=== PATIENT | female | born 1995 | race Caucasian/White ===

== ENCOUNTER 2016-07-07 07:38 | Inpatient (IN) | payer BC ==
[~2016-07-07] VITALS: Ht 157.5 cm; Wt 59.0 kg
[2016-07-07] MEDS ORDERED: PANT40TA PO (08:00)
[2016-07-07] MEDS ORDERED: SPR28 PO (08:00)
[2016-07-07] MEDS ORDERED: ADAL1KIT SQ (08:00)
[2016-07-07] MEDS ORDERED: ALUMCHW2 (08:00)
[2016-07-07] MEDS ORDERED: CLR10 PO (08:00)
[2016-07-07] MEDS ORDERED: ALUM1SUS PO (08:00)
[2016-07-07] MEDS ORDERED: KETOROLAC TROMETHAMINE 30 MG/ML VIAL IV STA (08:04)
[2016-07-07] MEDS ORDERED: SODIUM CHLORIDE 0.9% 1000ML 1,000 ML IV STA (08:04)
[2016-07-07] MEDS ORDERED: ONDANSETRON INJ 2 MG/ML 2 ML VIAL IV STA (08:04)
[2016-07-07 08:14] LABS: BASO % 1.1 %; BASO ABS # 0.05 K/uL (0-0.2); COMPLETE YES; EOS % 2.8 %; HEMATOCRIT 36.1 % (37-47); IG% 0.2 %; LYMPH % 26.5 %; LYMPH ABS # 1.23 K/uL (1.2-3.4); MEAN CELL VOLUME 86.8 fL (80-100); MEAN CORPUSCULAR HEMOGLOBIN 29.8 pg (25-34); MEAN CORPUSCULAR HGB CONC 34.3 g/dl (32-36); MEAN PLATELET VOLUME 9.8 fL (7.4-10.4); MONO % 14.7 %; NEUT % 54.7 %; PLATELET COUNT 405 K/uL (130-400); RED BLOOD COUNT 4.16 M/uL (4.2-5.4); WHITE BLOOD COUNT 4.64 K/uL (4.8-10.8)
--- NOTE | 2016-07-07 08:29 | DIAGNOSTIC IMAGING REPORT ---
CHEST ONE VIEW PORTABLE CLINICAL HISTORY: Pain, radiating to the abdomen. COMPARISON STUDY: No previous studies for comparison. FINDINGS: The cardiac and mediastinal contours are normal. There is no evidence of focal pulmonary consolidation. There is no evidence of failure. No pleural effusions are visualized.[ No free intraperitoneal air is visualized. IMPRESSION: No active disease in the chest. Electronically signed by: Rosalio Cristobal M.D. 07/07/2016 8:27 AM Dictated Date/Time: 07/07/2016 8:27 AM
[2016-07-07 08:35] LABS: BUN/CREATININE RATIO 12.7 (10-20); CALCIUM 9.5 mg/dl (8.5-10.1); CREATININE 0.75 mg/dl (0.60-1.20); POTASSIUM 3.8 mmol/L (3.5-5.1)
[2016-07-07 09:44] LABS: URINE APPEARANCE CLEAR (CLEAR); URINE BILIRUBIN NEG (NEG); URINE COLOR YELLOW; URINE NITRITE NEG (NEG); URINE SPECIFIC GRAVITY 1.006 (1.000-1.030); UROBILINOGEN NEG (NEG); ZZUR CULT IF INDIC CLEAN CATCH YES
[2016-07-07 09:47] LABS: MANUAL MICROSCOPIC REQUIRED? NO; REVIEW REQ? YES
[2016-07-07] MEDS ORDERED: FENTANYL CITRATE INJ 50 MCG/1 ML 2 ML VIAL IV STA (09:55)
[2016-07-07] MEDS ORDERED: LIDOCAINE HCL 2% VISC SOLN 20 ML UDC PO STA (09:55)
[2016-07-07] MEDS ORDERED: ALUMINUM/MAGNESIUM SUSP 30 ML UDC PO STA (09:55)
[2016-07-07] MEDS ORDERED: OPTIRAY 320 IV PRN (11:00)
--- NOTE | 2016-07-07 11:05 | DIAGNOSTIC IMAGING REPORT ---
BILIARY ULTRASOUND CLINICAL HISTORY: Upper abdominal pain COMPARISON STUDY: No previous studies for comparison. FINDINGS: The pancreas appears sonographically normal. No focal hepatic masses are visualized. There are multiple gallstones present. In addition there is a small, polyp or adherent stone. The common bile duct is mildly dilated measuring 8 mm. There is no right-sided hydronephrosis. IMPRESSION: 1. Cholelithiasis. No gallbladder wall thickening, and no pericholecystic fluid 2. Mildly dilated 8 mm common bile duct. Electronically signed by: Rosalio Cristobal M.D. 07/07/2016 11:03 AM Dictated Date/Time: 07/07/2016 11:02 AM
--- NOTE | 2016-07-07 11:16 | DIAGNOSTIC IMAGING REPORT ---
CT ABD/PELVIS IV AND ORAL CONT CLINICAL HISTORY: Intermittent epigastric pain. Worse the past 2/9. COMPARISON STUDY: None. TECHNIQUE: Following the IV administration of 94 mL of Optiray-320, CT scan of the abdomen and pelvis was performed from the lung bases to the proximal femurs. Images are reviewed in the axial, sagittal, and coronal planes. IV contrast was administered without complication. CT DOSE: 405.54 mGycm FINDINGS: Lower chest: The heart is normal in size and configuration, without pericardial effusion. The lung bases and pleural spaces are clear. Liver: Slightly heterogeneous enhancement particularly inferiorly. Minimal periportal edema. No focal masses. Gallbladder: Cholelithiasis. Spleen: Normal in size and attenuation. Pancreas: Unremarkable. Adrenal glands: Unremarkable. Kidneys: There is symmetric renal cortical enhancement. The kidneys are normal in size without hydronephrosis. Bowel: There are no transition zones indicate bowel obstruction. There is no acute diverticulitis. There are no findings to indicate acute appendicitis. Peritoneum: There is no intraperitoneal free air or abdominal ascites. Vasculature: The abdominal aorta is normal in course and caliber. Adenopathy: None. Pelvic viscera: The bladder, and pelvic viscera are unremarkable. Skeletal structures: There are subtle sclerosis and erosive changes involving the iliac side of the SI joints.. IMPRESSION: 1. Cholelithiasis 2. No evidence of bowel obstruction. No evidence of free air 3. No evidence of acute diverticulitis. No evidence of acute appendicitis 4. Subtle sclerosis and erosive changes involving the iliac side of the SI joints Electronically signed by: Rosalio Cristobal M.D. 07/07/2016 11:14 AM Dictated Date/Time: 07/07/2016 11:10 AM
--- NOTE | 2016-07-07 14:56 | EMERGENCY ROOM VISIT NOTE ---
History Report prepared by Milly: Alexandr Butler Under the Supervision of: Dr. Lowell Muller D.O. First contact with patient: 07:58 Chief Complaint: CHEST PAIN Stated Complaint: CHEST PAINS, BURPING Nursing Triage Summary: pt here chest/epigastric pain intermittently x one month. pt states worse past 2 nights. pt states feels better after releasing gas. pt denies any sob, nausea. pt started humira this week. has been taking prilosec x one month History of Present Illness The patient is a 20 year old female who presents to the Emergency Room with complaints of worsening chest and epigastric pain that started 2 days ago. She describes the pain as sharp. The patient states that she has been having intermittent chest pain for the past 1 and a half months, but the pain has become constant for the past 2 days, and she is not able to sleep due to the pain. The patient says that the pain is lessened after burping. She notes that she has been having intermittent abdominal pain that started around 3 months ago. The patient had an endoscopy and colonoscopy done a couple months ago due to having the abdominal pain, and there was concern that she might be having the pain due to being on long-term NSAIDS. She says that the abdominal pain feels like she is having gas and the abdominal pain is there when she has the chest pain. She says that she gets a bit short of breath when the pain gets bad , but she says that the shortness of breath may just be a result of her getting upset. The patient took Miralax a few times a couple weeks ago due to being constipated, but she has not been constipated this week. She denies nausea, fever, cough, or vomiting. The patient started taking Humira 2 days ago, as she has ankylosing spondylitis. Other than the ankylosing spondylitis, she has no other chronic medical problems. The patient started taking Gaviscon yesterday, and she has been taking Tums for the past week to try to resolve her symptoms. The patient was on Omeprazole and was switched to Protonix 3 weeks ago. She started taking Prilosec around a month ago. She is currently having her menstrual period. Source of History: patient Onset: 2 days ago Position: chest Quality: sharp Timing: worsening Modifying Factors (Relieving): other (burping) Associated Symptoms: + SOB, + abdominal pain, No cough, No nausea, No vomiting Review of Systems See HPI for pertinent positives & negatives. A total of 10 systems reviewed and were otherwise negative. Past Medical & Surgical Medical Problems: (1) Ankylosing spondylitis Family History No pertinent family history Social History Smoking Status: Never Smoker Marital Status: single Housing Status: lives with roommate Occupation Status: [employer] student Current/Historical Medications Scheduled Adalimumab (Humira), 40 MG SQ EVERY OTHER WEEK Ethinyl Estrad/Norgestimate (Sprintec 28), 1 TAB PO DAILY Loratadine (Claritin), 10 MG PO DAILY Pantoprazole (Protonix), 40 MG PO DAILY Miscellaneous Medications Aluminum Hydroxide-Mag Carb (Gaviscon Extra Strength 254-237.5 mg/5Ml), 10 ML PO Allergies Coded Allergies: Amoxicillin (Unverified Adverse Reaction, Unknown, general malaise, 07/07/16 ) Physical Exam Vital Signs Date Time Temp Pulse Resp B/P Pulse Ox O2 Delivery O2 Flow Rate FiO2 07/07/16 13:30 62 18 123/99 97 Room Air 07/07/16 13:05 51 07/07/16 11:30 56 18 113/69 99 Room Air 07/07/16 10:21 51 16 132/92 95 Room Air 07/07/16 09:36 52 18 122/83 94 Room Air 07/07/16 08:54 55 18 114/87 98 Room Air 07/07/16 08:22 51 16 143/87 99 Room Air 07/07/16 07:54 63 07/07/16 07:46 36.6 77 16 148/73 94 Room Air 07/07/16 07:44 100 Room Air Physical Exam CONSTITUTIONAL/VITAL SIGNS: Reviewed / noted above. GENERAL: Non-toxic in appearance. INTEGUMENTARY: Warm, dry, and [place]. HEAD: Normocephalic. EYES: without scleral icterus or trauma. ENT/OROPHARYNX: clear and moist. LYMPHADENOPATHY/NECK: Is supple without lymphadenopathy or meningismus. RESPIRATORY: Lungs clear and equal. CARDIOVASCULAR: Regular rate and rhythm. GI/ABDOMEN: Soft. Diffuse abdominal tenderness, worsening in epigastric area. No organomegaly or pulsatile mass. No rebound or guarding. Normal bowel sounds. EXTREMITIES: Warm and well perfused. BACK: No CVA tenderness. NEUROLOGICAL: Intact without focal deficits. PSYCHIATRIC: normal affect. MUSCULOSKELETAL: Normally developed with good muscle tone. Medical Decision & Procedures ER Provider Diagnostic Interpretation: Radiology results as stated below per my review and radiologist interpretation: CHEST ONE VIEW PORTABLE CLINICAL HISTORY: Pain, radiating to the abdomen. COMPARISON STUDY: No previous studies for comparison. FINDINGS: The cardiac and mediastinal contours are normal. There is no evidence of focal pulmonary consolidation. There is no evidence of failure. No pleural effusions are visualized.[ No free intraperitoneal air is visualized. IMPRESSION: No active disease in the chest. Electronically signed by: Rosalio Cristobal M.D. 07/07/2016 8:27 AM Dictated Date/Time: 07/07/2016 8:[address] ABD/PELVIS IV AND ORAL CONT CLINICAL HISTORY: Intermittent epigastric pain. Worse the past 2/9. COMPARISON STUDY: None. TECHNIQUE: Following the IV administration of 94 mL of Optiray-320, CT scan of the abdomen and pelvis was performed from the lung bases to the proximal femurs. Images are reviewed in the axial, sagittal, and coronal planes. IV contrast was administered without complication. CT DOSE: 405.54 mGycm FINDINGS: Lower chest: The heart is normal in size and configuration, without pericardial effusion. The lung bases and pleural spaces are clear. Liver: Slightly heterogeneous enhancement particularly inferiorly. Minimal periportal edema. No focal masses. Gallbladder: Cholelithiasis. Spleen: Normal in size and attenuation. Pancreas: Unremarkable. Adrenal glands: Unremarkable. Kidneys: There is symmetric renal cortical enhancement. The kidneys are normal in size without hydronephrosis. Bowel: There are no transition zones indicate bowel obstruction. There is no acute diverticulitis. There are no findings to indicate acute appendicitis. Peritoneum: There is no intraperitoneal free air or abdominal ascites. Vasculature: The abdominal aorta is normal in course and caliber. Adenopathy: None. Pelvic viscera: The bladder, and pelvic viscera are unremarkable. Skeletal structures: There are subtle sclerosis and erosive changes involving the iliac side of the SI joints.. IMPRESSION: 1. Cholelithiasis 2. No evidence of bowel obstruction. No evidence of free air 3. No evidence of acute diverticulitis. No evidence of acute appendicitis 4. Subtle sclerosis and erosive changes involving the iliac side of the SI joints Electronically signed by: Rosalio Cristobal M.D. 07/07/2016 11:14 AM Dictated Date/Time: 07/07/2016 11:10 AM BILIARY ULTRASOUND CLINICAL HISTORY: Upper abdominal pain COMPARISON STUDY: No previous studies for comparison. FINDINGS: The pancreas appears sonographically normal. No focal hepatic masses are visualized. There are multiple gallstones present. In addition there is a small, polyp or adherent stone. The common bile duct is mildly dilated measuring 8 mm. There is no right-sided hydronephrosis. IMPRESSION: 1. Cholelithiasis. No gallbladder wall thickening, and no pericholecystic fluid 2. Mildly dilated 8 mm common bile duct. Electronically signed by: Rosalio Cristobal M.D. 07/07/2016 11:03 AM Dictated Date/Time: 07/07/2016 11:02 AM Laboratory Results 07/07/16 07:50 Red Blood Count 4.16, Mean Corpuscular Volume 86.8, Mean Corpuscular Hemoglobin 29.8, Mean Corpuscular Hemoglobin Concent 34.3, Mean Platelet Volume 9.8, Neutrophils (%) (Auto) 54.7, Lymphocytes (%) (Auto) 26.5, Monocytes (%) (Auto) 14.7, Eosinophils (%) (Auto) 2.8, Basophils (%) (Auto) 1.1, Neutrophils # (Auto ) 2.54, Lymphocytes # (Auto) 1.23, Monocytes # (Auto) 0.68, Eosinophils # (Auto ) 0.13, Basophils # (Auto) 0.05 07/07/16 07:50 Test 07/07/16 07:50 07/07/16 08:12 07/07/16 09:30 White Blood Count 4.64 K/uL (4.8-10.8) Red Blood Count 4.16 M/uL (4.2-5.4) Hemoglobin 12.4 g/dL (12.0-16.0) Hematocrit 36.1 % (37-47) Mean Corpuscular Volume 86.8 fL (80-100) Mean Corpuscular Hemoglobin 29.8 pg (25-34) Mean Corpuscular Hemoglobin Concent 34.3 g/dl (32-36) Platelet Count 405 K/uL (130-400) Mean Platelet Volume 9.8 fL (7.4-10.4) Neutrophils (%) (Auto) 54.7 % Lymphocytes (%) (Auto) 26.5 % Monocytes (%) (Auto) 14.7 % Eosinophils (%) (Auto) 2.8 % Basophils (%) (Auto) 1.1 % Neutrophils # (Auto) 2.54 K/uL (1.4-6.5) Lymphocytes # (Auto) 1.23 K/uL (1.2-3.4) Monocytes # (Auto) 0.68 K/uL (0.11-0.59) Eosinophils # (Auto) 0.13 K/uL (0-0.5) Basophils # (Auto) 0.05 K/uL (0-0.2) RDW Standard Deviation 40.9 fL (36.4-46.3) RDW Coefficient of Variation 12.7 % (11.5-14.5) Immature Granulocyte % (Auto) 0.2 % Immature Granulocyte # (Auto) 0.01 K/uL (0.00-0.02) Anion Gap 5.0 mmol/L (3-11) Est Creatinine Clear Calc Drug Dose 104.3 ml/min Estimated GFR () 132.1 Estimated GFR (Non- 113.9 BUN/Creatinine Ratio 12.7 (10-20) Calcium Level 9.5 mg/dl (8.5-10.1) Total Bilirubin 0.9 mg/dl (0.2-1) Direct Bilirubin 0.5 mg/dl (0-0.2) Aspartate Amino Transf (AST/SGOT) 570 U/L (15-37) Alanine Aminotransferase (ALT/SGPT) 532 U/L (12-78) Alkaline Phosphatase 253 U/L (45-117) Total Protein 8.3 gm/dl (6.4-8.2) Albumin 3.5 gm/dl (3.4-5.0) Lipase 359 U/L (73-393) Monoscreen NEG (NEG) Bedside Troponin I 0.000 ng/ml (0-0.045) Urine Color YELLOW Urine Appearance CLEAR (CLEAR) Urine pH 8.0 (4.5-7.5) Urine Specific [place] 1.006 (1.000-1.030) Urine Protein NEG (NEG) Urine Glucose (UA) NEG (NEG) Urine Ketones NEG (NEG) Urine Occult Blood 3+ (NEG) Urine Nitrite NEG (NEG) Urine Bilirubin NEG (NEG) Urine Urobilinogen NEG (NEG) Urine Leukocyte Esterase NEG (NEG) Urine WBC (Auto) 1-5 /hpf (0-5) Urine RBC (Auto) 10-30 /hpf (0-4) Urine Hyaline Casts (Auto) 1-5 /lpf (0-5) Urine Epithelial Cells (Auto) 5-10 /lpf (0-5) Urine Bacteria (Auto) NEG (NEG) Urine Yeast (Auto) (NONE PRSENT) Urine Test NEG (NEG) Laboratory results as stated above per my review. Medications Administered Medications (Trade) Dose Ordered Sig/Cayden Route Start Time Stop Time Status Last Admin Dose Admin Sodium Chloride (Nss 1000ml) 1,000 ml @ 999 mls/hr Q1H1M STAT IV 07/07/16 08:04 07/07/16 09:04 DC 07/07/16 08:19 999 MLS/HR Ondansetron HCl (Zofran Inj) 4 mg NOW STAT IV 07/07/16 08:04 07/07/16 08:06 DC 07/07/16 08:19 4 MG Ketorolac Tromethamine (Toradol Inj) 30 mg NOW STAT IV 07/07/16 08:04 07/07/16 08:06 DC 07/07/16 08:19 30 MG Al Hydroxide/Mg Hydroxide (Maalox Susp) 30 ml NOW STAT PO 07/07/16 09:55 07/07/16 09:56 DC 07/07/16 10:15 30 ML Lidocaine HCl (Viscous Lidocaine 2% Soln) 10 ml NOW STAT PO 07/07/16 09:55 07/07/16 09:56 DC 07/07/16 10:14 10 ML Fentanyl Citrate (Fentanyl Inj) 50 mcg NOW STAT IV 07/07/16 09:55 07/07/16 09:56 DC 07/07/16 10:15 50 MCG ECG Indication: abdominal pain Rate (beats per minute): 62 Rhythm: normal sinus (with sinus arrhythmia) Findings: no ectopy, other (no acute injury) ED Course 0800: Previous medical records were reviewed. The patient was evaluated in room A9B. A complete history and physical examination was performed. 0804: Ordered Toradol Inj 30 mg IV, Zofran Inj 4 mg IV, NSS 1000 ml @ 999 mls/ hr IV. 0955: Ordered Fentanyl Inj 50 mcg IV, Viscous Lidocaine 2% Soln 10 ml PO, Maalox Susp 30 ml PO. 1230: I reevaluated and updated the patient. 1240: I discussed the patient with Dr. Modesto Johnson gastroenterology - he says that he will come down and see the patient. 1350: I discussed the patient with Bre MONCADA from Dr. Salvador's office - she thinks that the patient needs to be evaluated for further treatment , and have an MRCP and surgery consult. Bre Zamora says that she will put in the order for the surgery consult and MRCP. She told me to contact the hospitalist service to get the patient evaluated for further treatment. The patient verbally expressed understanding and agreement of the treatment plan. The patient will be evaluated for further treatment. 1356: I discussed the patient with Dr. Isabell Johnson logistics center manager - he will evaluate the patient for further treatment. Medical Decision Differential considered: pancreatitis, hepatitis, or acute cholecystitis, AAA, UTI, pyelonephritis, kidney stones, appendicitis, diverticulitis, shingles, bowel obstruction mesenteric ischemia, intussusception,hernia, ovarian torsion , ruptured ovarian cyst,ectopic , . This is a 20-year-old female who presents to the ED with a chief complaint of epigastric abdominal pain. The patient states that she has had the pain continuously for the past couple of days. She states that it feels a little better if she burps. She denies having any shortness of breath, fevers or cough. The patient states that she has had a little constipation over the past couple of weeks. She has used Miramax. The patient is currently using Gaviscon and is on Protonix. She states that she had endoscopy and colonoscopy about a month ago that was normal. Her physical exam revealed diffuse tenderness but mostly in the epigastric and upper quadrants. Chest x-ray did not show acute disease. CBC was unremarkable. PRP was normal. AST is 570, ALT is 532, alkaline phosphatase 253. Troponin was negative. Urine shows 3+ blood. She is on her period. I spoke with Dr. Covarrubias about the patient. He had Man Zamora see the patient in the ED. The patient will be admitted by Dr. Whyte. The patient will have an inpatient MRCP, surgery consult. Consults Time Called: 1235 Consulting Physician: Dr. Modesto Johnson gastroenterology Returned Call: 1240 I discussed the patient with Dr. Modesto Johnson gastroenterology - he says that he will come down and see the patient. Additional Consults: Time Called: -- Consulted Physician: Bre MONCADA from Dr. Salvador's office Returned Call: [phone] (in person) Additional Comments: I discussed the patient with Bre MONCADA from Dr. Salvador's office - she thinks that the patient needs to be evaluated for further treatment, and have an MRCP and surgery consult. Bre Zamora says that she will put in the order for the surgery consult and MRCP. She told me to contact the hospitalist service to get the patient evaluated for further treatment. The patient verbally expressed understanding and agreement of the treatment plan. The patient will be evaluated for further treatment. Time Called: 1350 Consulted Physician: Dr. Isabell Johnson logistics center manager Returned Call: [phone] Additional Comments: I discussed the patient with Dr. Isabell Johnson logistics center manager - he will evaluate the patient for further treatment. Impression Primary Impression: Cholelithiasis Additional Impressions: Possible choledocholithiasis Abdominal pain Scribe Attestation The scribe's documentation has been prepared under my direction and personally reviewed by me in its entirety. I confirm that the note above accurately reflects all work, treatment, procedures, and medical decision making performed by me. Departure Information Dispostion Being Evaluated By Hospitalist Referrals [facility] (PCP) Patient Instructions My [facility] Problem Qualifiers
[2016-07-07] MEDS ORDERED: FENTANYL CITRATE INJ 50 MCG/1 ML 2 ML VIAL IV PRN (15:00)
--- NOTE | 2016-07-07 15:37 | Gastrointestinal Consultation ---
Gastrointestinal Consultation Date of Consultation: July 07, 2016 Attending Physician: Dr. Wong Consulting Physician: Dr. Salvador Reason for Consultation: Abdominal pain, elevated LFTs History of Present Illness Patient is a 20 year old female patient of Dr. Meseret Jasmine of [facility] with a hx of recently dx'ed ankylosing spondylitis having started a Humira 2 days ago. She presented to the ED today for epigastric pain. GI is consulted for this as well as elevated transaminases. She has had lower chest and epigastric pressure type pain, typically in the afternoons and evenings w/o any specific food triggers. The pain is intermittent , with complete relief between the episodes. Initially the episodes lasted up to an hour, sometimes with relief with burping. She was on an NSAID for back pain related to the ankylosing spondylitis and she experienced rectal bleeding. She underwent EGD for the epigastric pain and colonoscopy for the rectal bleeding, both on 05/25/16, neither with any abnormalities. She had relief for about a week then the episodes of pain returned. In the past 2 days, the pain has been persistent and she has been unable to eat, though is still able to drink. On arrival, CT and US with gallstones mild bile duct dilation at 8mm. Her transaminases were significantly increased: AST 570, ALT 532, Alk Phos 253, bilirubin has remained normal. Lipase is mildly elevated at 359. She has not had chills, sweats or fevers and there is no leukocytosis. She is seen and examined while she is resting in bed in the ED. She is awake, alert, oriented and hemodynamically stable. Past Medical/Surgical History Medical Problems: (1) Abdominal pain Status: Acute (2) Cholelithiasis Status: Acute Past Medical History: Recent dx of [id number] positive Ankylosing Spondylitis. Past Surgical History: No prior surgeries Family History No pertinent family history Social History Smoking Status: Never Smoker Marital Status: single Housing Status: lives with roommate Occupation Status: [employer] student Allergies Coded Allergies: Amoxicillin (Unverified Adverse Reaction, Unknown, general malaise, 07/07/16 ) Current Medications Home Meds and Scripts Medications Dose Route/Sig Max Daily Dose Days Date Category Claritin (Loratadine) 10 Mg Tab 10 Mg PO DAILY 07/07/16 Reported Humira (Adalimumab) 40 Mg/0.8 Ml Kit 40 Mg SQ EVERY OTHER WEEK 07/07/16 Reported Sprintec 28 (Ethinyl Estradiol/Norgestimate) 1 Tab Tab 1 Tab PO DAILY 28 07/07/16 Reported Gaviscon Extra Strength 254-237.5 mg/5Ml (Aluminum Hydroxide-Mag Carb) 1 Eleni Eleni 10 Ml PO 07/07/16 Reported Protonix (Pantoprazole Sodium) 40 Mg Tab 40 Mg PO DAILY 07/07/16 Reported Review of Systems Constitutional: No chills, No fever, No sweats, No weakness, No weight loss Eyes: No eye pain, No redness ENT: No pain on swallowing, No sore throat, No trouble swallowing Respiratory: No cough, No dyspnea on exertion, No shortness of breath, No wheezing Cardiac: No chest pain, No edema, No palpitations Abdomen: + constipation (had mild constipation previously, relieved with miralax daily), + pain, + see HPI, No GI bleeding, No diarrhea, No nausea, No vomiting Neuro: No balance problems, No memory loss, No numbness/tingling, No vertigo, No weakness Psych: No anxiety, No depression symptoms, No insomnia Heme: No abnormal bleeding/bruising, No night sweats Endo: No excessive thirst, No excessive urination Skin: No itch, No jaundice, No new/changing skin lesions, No rash Physical Exam Date Time Temp Pulse Resp B/P Pulse Ox O2 Delivery O2 Flow Rate FiO2 07/07/16 13:30 62 18 123/99 97 Room Air 07/07/16 13:05 51 07/07/16 11:30 56 18 113/69 99 Room Air 07/07/16 10:21 51 16 132/92 95 Room Air 07/07/16 09:36 52 18 122/83 94 Room Air 07/07/16 08:54 55 18 114/87 98 Room Air 07/07/16 08:22 51 16 143/87 99 Room Air 07/07/16 07:54 63 07/07/16 07:46 36.6 77 16 148/73 94 Room Air 07/07/16 07:44 100 Room Air General Appearance: no apparent distress Eyes: normal inspection, EOMI Neck: supple, no adenopathy, thyroid normal Respiratory/Chest: chest non-tender, lungs clear, normal breath sounds, no accessory muscle use Cardiovascular: regular rate, rhythm, no JVD, no murmur Abdomen: normal bowel sounds, no organomegaly, + tenderness Extremities: normal inspection, no pedal edema, normal capillary refill Neurologic/Psych: alert, normal mood/affect, oriented x 3 Skin: normal color, no jaundice, warm/dry, no rash Laboratory Results Last 24 Hours Test 07/07/16 07:50 07/07/16 08:12 07/07/16 09:30 White Blood Count 4.64 K/uL Red Blood Count 4.16 M/uL Hemoglobin 12.4 g/dL Hematocrit 36.1 % Mean Corpuscular Volume 86.8 fL Mean Corpuscular Hemoglobin 29.8 pg Mean Corpuscular Hemoglobin Concent 34.3 g/dl Platelet Count 405 K/uL Mean Platelet Volume 9.8 fL Neutrophils (%) (Auto) 54.7 % Lymphocytes (%) (Auto) 26.5 % Monocytes (%) (Auto) 14.7 % Eosinophils (%) (Auto) 2.8 % Basophils (%) (Auto) 1.1 % Neutrophils # (Auto) 2.54 K/uL Lymphocytes # (Auto) 1.23 K/uL Monocytes # (Auto) 0.68 K/uL Eosinophils # (Auto) 0.13 K/uL Basophils # (Auto) 0.05 K/uL RDW Standard Deviation 40.9 fL RDW Coefficient of Variation 12.7 % Immature Granulocyte % (Auto) 0.2 % Immature Granulocyte # (Auto) 0.01 K/uL Sodium Level 139 mmol/L Potassium Level 3.8 mmol/L Chloride Level 104 mmol/L Carbon Dioxide Level 30 mmol/L Anion Gap 5.0 mmol/L Blood Urea Nitrogen 10 mg/dl Creatinine 0.75 mg/dl Est Creatinine Clear Calc Drug Dose 104.3 ml/min Estimated GFR () 132.1 Estimated GFR (Non- 113.9 BUN/Creatinine Ratio 12.7 Random Glucose 98 mg/dl Calcium Level 9.5 mg/dl Total Bilirubin 0.9 mg/dl Direct Bilirubin 0.5 mg/dl Aspartate Amino Transf (AST/SGOT) 570 U/L Alanine Aminotransferase (ALT/SGPT) 532 U/L Alkaline Phosphatase 253 U/L Total Protein 8.3 gm/dl Albumin 3.5 gm/dl Lipase 359 U/L Monoscreen NEG Bedside Troponin I 0.000 ng/ml Urine Color YELLOW Urine Appearance CLEAR Urine pH 8.0 Urine Specific [place] 1.006 Urine Protein NEG Urine Glucose (UA) NEG Urine Ketones NEG Urine Occult Blood 3+ Urine Nitrite NEG Urine Bilirubin NEG Urine Urobilinogen NEG Urine Leukocyte Esterase NEG Urine WBC (Auto) 1-5 /hpf Urine RBC (Auto) 10-30 /hpf Urine Hyaline Casts (Auto) 1-5 /lpf Urine Epithelial Cells (Auto) 5-10 /lpf Urine Bacteria (Auto) NEG Urine Yeast (Auto) Urine Test NEG Impression Patient is a 20 year old female symptoms and elevated transaminases consistent with symptomatic cholelithiasis, possible choledocholithiasis. There is no sign of cholangitis. Plan 1. MRCP, if positive for choledocholithiasis then will arrange ERCP. 2. Surgical referral to consider cholecystectomy. 3. Trend LFTs, lipase. 4. Keep NPO for now. 5. Will continue to follow. I have seen,examined, and agree with the assesment and plan as outlined above by Ms. Bre Zamora, -Biliary colic -Await MRCP -CBD stone may explain symptoms and labs, vs passed stone.
[2016-07-07] MEDS ORDERED: ONDANSETRON INJ 2 MG/ML 2 ML VIAL IV PRN (16:15)
[2016-07-07] MEDS ORDERED: MoRPHine SULFATE 4 MG/ML 1 ML CARP\\VIAL IV PRN ×2 (16:45→17:00)
[2016-07-07 17:15] VITALS: BP 122/82; PULSE 76; TEMP 36.6; O2SAT 98; Ht 157.5 cm; Wt 59.0 kg
--- NOTE | 2016-07-07 18:20 | DIAGNOSTIC IMAGING REPORT ---
MRCP CLINICAL HISTORY: Generalized abdominal pain. Nausea and vomiting. Eructation. COMPARISON STUDY: Abdominal CT and abdominal ultrasound dated 07/07/2016. TECHNIQUE: MRCP is performed using various T2-weighted sequences in the axial and coronal planes. IV contrast was not administered for this examination. 3-D reformats are created and assessed. FINDINGS: Layering gallstones are identified within the gallbladder. The gallbladder is otherwise normal in appearance. There is no MRI evidence of cholecystitis. There is no intra or extrahepatic biliary ductal dilatation. The common bile duct is normal in caliber and measures up to 5 mm. There are no filling defects identified to suggest choledocholithiasis. The pancreatic duct is normal as visualized. The hepatic parenchyma is normal as imaged. Mild periportal edema is suggested. The spleen, kidneys, and pancreas are grossly unremarkable. No upper abdominal ascites is identified. IMPRESSION: 1. Cholelithiasis without MRI evidence of acute cholecystitis. 2. There is no intra or extrahepatic biliary ductal dilatation. There is no evidence of choledocholithiasis. 3. Mild hepatic periportal edema is noted and likely related to hydration status. Electronically signed by: Rolan Tan M.D. 07/08/2016 10:42 AM Dictated Date/Time: 07/07/2016 5:19 PM
--- NOTE | 2016-07-07 18:29 | History and Physical ---
History & Physical Date & Time of Service: July 07, 2016 at 18:28 Chief Complaint: Abdominal Pain, Cholelithiasis Primary Care Physician: [facility] Past Medical/Surgical History Medical Problems: (1) Ankylosing spondylitis Status: Chronic Family History No pertinent family history Social History Smoking Status: Never Smoker Marital Status: single Occupational Status: [employer] student Allergies Coded Allergies: Amoxicillin (Unverified Adverse Reaction, Unknown, general malaise, 07/07/16 ) Home Medications Scheduled Adalimumab (Humira), 40 MG SQ EVERY OTHER WEEK Ethinyl Estrad/Norgestimate (Sprintec 28), 1 TAB PO DAILY Loratadine (Claritin), 10 MG PO DAILY Pantoprazole (Protonix), 40 MG PO DAILY Miscellaneous Medications Aluminum Hydroxide-Mag Carb (Gaviscon Extra Strength 254-237.5 mg/5Ml), 10 ML PO Physical Exam Vital Signs Date Time Temp Pulse Resp B/P Pulse Ox O2 Delivery O2 Flow Rate FiO2 07/07/16 16:28 51 18 106/76 100 07/07/16 16:00 106/76 07/07/16 15:38 66 16 99 07/07/16 15:30 125/90 07/07/16 15:08 63 21 97 07/07/16 15:00 125/83 07/07/16 14:38 68 20 94 07/07/16 14:30 127/84 07/07/16 14:08 63 16 99 07/07/16 14:00 136/87 07/07/16 13:38 59 19 97 07/07/16 13:30 62 18 123/99 97 Room Air 07/07/16 13:30 123/99 07/07/16 13:08 67 17 95 07/07/16 13:05 51 07/07/16 13:00 115/75 07/07/16 12:38 72 16 97 07/07/16 12:30 106/62 07/07/16 12:08 48 13 97 07/07/16 12:00 116/68 07/07/16 11:38 54 14 98 07/07/16 11:30 56 18 113/69 99 Room Air 07/07/16 11:30 113/69 07/07/16 10:30 106/63 07/07/16 10:21 51 16 132/92 95 Room Air 07/07/16 10:08 73 14 98 07/07/16 10:00 132/92 07/07/16 09:38 53 18 07/07/16 09:36 52 18 122/83 94 Room Air 07/07/16 09:32 122/83 07/07/16 09:08 72 17 94 07/07/16 09:00 123/93 07/07/16 08:54 55 18 114/87 98 Room Air 07/07/16 08:38 57 20 90 07/07/16 08:30 114/87 07/07/16 08:23 143/87 07/07/16 08:22 51 16 143/87 99 Room Air 07/07/16 08:08 61 13 87 07/07/16 08:00 143/99 07/07/16 07:54 63 07/07/16 07:46 36.6 77 16 148/73 94 Room Air 07/07/16 07:46 135/96 07/07/16 07:44 100 Room Air Diagnostics Laboratory Results Results Past 24 Hours Test 07/07/16 07:50 07/07/16 08:12 07/07/16 09:30 Range/Units White Blood Count 4.64 4.8-10.8 K/uL Red Blood Count 4.16 4.2-5.4 M/uL Hemoglobin 12.4 12.0-16.0 g/dL Hematocrit 36.1 37-47 % Mean Corpuscular Volume 86.8 80-100 fL Mean Corpuscular Hemoglobin 29.8 25-34 pg Mean Corpuscular Hemoglobin Concent 34.3 32-36 g/dl Platelet Count 405 130-400 K/uL Mean Platelet Volume 9.8 7.4-10.4 fL Neutrophils (%) (Auto) 54.7 % Lymphocytes (%) (Auto) 26.5 % Monocytes (%) (Auto) 14.7 % Eosinophils (%) (Auto) 2.8 % Basophils (%) (Auto) 1.1 % Neutrophils # (Auto) 2.54 1.4-6.5 K/uL Lymphocytes # (Auto) 1.23 1.2-3.4 K/uL Monocytes # (Auto) 0.68 0.11-0.59 K/uL Eosinophils # (Auto) 0.13 0-0.5 K/uL Basophils # (Auto) 0.05 0-0.2 K/uL RDW Standard Deviation 40.9 36.4-46.3 fL RDW Coefficient of Variation 12.7 11.5-14.5 % Immature Granulocyte % (Auto) 0.2 % Immature Granulocyte # (Auto) 0.01 0.00-0.02 K/uL Sodium Level 139 136-145 mmol/L Potassium Level 3.8 3.5-5.1 mmol/L Chloride Level 104 98-107 mmol/L Carbon Dioxide Level 30 21-32 mmol/L Anion Gap 5.0 3-11 mmol/L Blood Urea Nitrogen 10 7-18 mg/dl Creatinine 0.75 0.60-1.20 mg/dl Est Creatinine Clear Calc Drug Dose 104.3 ml/min Estimated GFR () 132.1 Estimated GFR (Non- 113.9 BUN/Creatinine Ratio 12.7 10-20 Random Glucose 98 70-99 mg/dl Calcium Level 9.5 8.5-10.1 mg/dl Total Bilirubin 0.9 0.2-1 mg/dl Direct Bilirubin 0.5 0-0.2 mg/dl Aspartate Amino Transf (AST/SGOT) 570 15-37 U/L Alanine Aminotransferase (ALT/SGPT) 532 12-78 U/L Alkaline Phosphatase 253 45-117 U/L Total Protein 8.3 6.4-8.2 gm/dl Albumin 3.5 3.4-5.0 gm/dl Lipase 359 73-393 U/L Monoscreen NEG NEG Bedside Troponin I 0.000 0-0.045 ng/ml Urine Color YELLOW Urine Appearance CLEAR CLEAR Urine pH 8.0 4.5-7.5 Urine Specific [place] 1.006 1.000-1.030 Urine Protein NEG NEG Urine Glucose (UA) NEG NEG Urine Ketones NEG NEG Urine Occult Blood 3+ NEG Urine Nitrite NEG NEG Urine Bilirubin NEG NEG Urine Urobilinogen NEG NEG Urine Leukocyte Esterase NEG NEG Urine WBC (Auto) 1-5 0-5 /hpf Urine RBC (Auto) 10-30 0-4 /hpf Urine Hyaline Casts (Auto) 1-5 0-5 /lpf Urine Epithelial Cells (Auto) 5-10 0-5 /lpf Urine Bacteria (Auto) NEG NEG Urine Yeast (Auto) NONE PRSENT Urine Test NEG NEG Microbiology Results 07/07/16 Urine Culture, Received Pending Impression Assessment and Plan admit #[id number] VTE Prophylaxis VTE Risk Assessment Done? Y/N: Yes Risk Level: Low
--- NOTE | 2016-07-07 18:57 | HISTORY & PHYSICAL EXAMINATION ---
DATE OF ADMISSION: 07/07/2016 ADMISSION HISTORY AND PHYSICAL CHIEF COMPLAINT: Upper abdominal pain. HISTORY OF PRESENT ILLNESS: The patient is a very pleasant 20-year-old female accompanied by her aunt who is a family physician known to me outside of work who notes that she started with chest and epigastric pain it has really been going off and on for about 4-6 weeks but really worse, especially over the last 2 days or so. She kind of wondered if she was having peptic ulcer disease problems because the alf NSAIDs related to her ankylosing spondylitis, but whenever she came here to the ER, her workup appeared much more biliary. She has not had fevers, chills, or sweats. She has not had jaundice. She has already been seen by GI by the time I have seen her and I discussed the case with general surgery. REVIEW OF SYSTEMS: Otherwise negative, except for as above. PAST MEDICAL HISTORY: Includes ankylosing spondylitis. MEDICATIONS: Include Humira 40 mg subQ every other week that was recently started, control pill daily, Claritin 10 mg daily, Protonix 40 mg daily. FAMILY HISTORY: No significant family history. SOCIAL HISTORY: She is not a smoker. 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 ALLERGIES: INCLUDE AMOXICILLIN, although it sounds more like it was nausea as an adverse reaction, not a true allergic reaction. PAST SURGICAL HISTORY: None of significance. PHYSICAL EXAMINATION: VITAL SIGNS: Temperature 36.6, pulse 77, respiratory rate 16, blood pressure 148/73, 94% on room air. GENERAL: She is awake, alert, oriented x3, pleasant, in no acute distress. HEENT: Normocephalic, atraumatic. Mucous membranes are moist. CARDIOVASCULAR: Regular without rubs, murmurs, or gallops. LUNGS: Clear to auscultation bilaterally. No rales, rhonchi, or wheezes with good effort. ABDOMEN: Soft, nondistended. She has right upper quadrant tenderness with voluntary guarding, no rigidity, no rebound. EXTREMITIES: Without cyanosis, clubbing or edema. No calf tenderness. SKIN: Shows no rashes, no pallor or icterus. NEUROLOGIC: Shows cranial nerves II-XII to be grossly intact. Gross motor and sensory are intact. MUSCULOSKELETAL: Yields no gross lesions. MENTAL STATUS: Shows good recent and remote recall. Normal mood and affect. Good judgment and insight. LABS AND DIAGNOSTICS: CBC shows a white count of 4.64, hemoglobin 12.4, platelets 405. Complete metabolic panel with a sodium 139, potassium 3.8, chloride 104, CO2 30, BUN 10, creatinine 0.75. Calcium 9.5, glucose 98, total bilirubin 0.9 with a direct of 0.5, AST 570, ALT 532, alkaline phosphatase 253. Troponin of 0. Total protein 8.3, albumin 3.5, lipase 359. Urinalysis - yellow, specific gravity 1.06, pH 8, 3+ blood with 5-10 epithelial cells, 10-30 red cells. test is negative. Price screen is negative. Chest x-ray showed no active disease. CT abdomen and pelvis showed heart normal size and configuration without pericardial effusion, lung bases and pleural spaces are clear, liver slightly heterogenous enhancement, particularly inferiorly, minimal periportal edema, no focal masses, cholelithiasis noted in the gallbladder, spleen is normal size and attenuation. Pancreas unremarkable. Adrenal is unremarkable. Kidneys symmetrical, renal cortical enhancement, kidneys are normal in size without hydronephrosis. Bowels no transition zones indicating obstruction, no acute diverticulitis. No findings to indicate acute appendicitis. Vasculature normal in course and caliber. Adenopathy none. Bladder, pelvic viscera unremarkable. Subtle sclerosis and erosive changes involving the iliac side of the SI joints. Gallbladder ultrasound showing pancreas appearing sonographically normal, no focal hepatic masses, multiple gallstones and a small polyp or adherent stone, common bile duct mildly dilated at 8 mm. No right-sided hydronephrosis. ASSESSMENT AND PLAN: 1. Epigastric and right upper abdominal pain. This appears to be on the basis of choledocholithiasis. Her LFTs are a bit more hepatocellular than obstructive, but her clinical picture certainly fits much more with an obstructive pathology. GI has seen her and agreed. They ordered an MRCP. Surgery consult pending. I discussed the case with general surgery, certainly when or if cholecystectomy is warranted. She is medically more than acceptable risk for the planned procedure. Discussed with the patient and her aunt in regards to the recent onset of Humira, certainly will watch her more closely for infection, but to the best of my knowledge, there is nothing about that that would be an absolute contraindication or even really making her high risk. Would continue to follow. 2. Transaminitis. Given that it is slightly atypical picture, certainly will follow up LFTs in the a.m. and follow up on her MRCP, but given the clinical picture with her symptoms and stones and common bile duct dilation, it appears fairly clinically consistent with biliary disease. 3. Ankylosing spondylitis. Follow closely. Certainly this would account for the sclerosis seen on her sacroiliac joints. Continue Humira as an outpatient. 4. Continue her control pills. 5. Deep venous thrombosis prophylaxis. Ambulation.
[2016-07-07] MEDS: SODIUM CHLOR 0.45% + 20MEQ KCL 1,000 ML IV SCH (19:51)
[2016-07-07 23:00] VITALS: BP 103/53; PULSE 45; TEMP 36.6; O2SAT 97
[2016-07-08 06:54] VITALS: BP 119/73; PULSE 58; TEMP 36.5; O2SAT 99
[2016-07-08 07:23] LABS: BASO % 1.3 %; BASO ABS # 0.05 K/uL (0-0.2); COMPLETE YES; EOS % 5.5 %; HEMATOCRIT 35.2 % (37-47); IG% 0.3 %; LYMPH % 33.9 %; LYMPH ABS # 1.29 K/uL (1.2-3.4); MEAN CELL VOLUME 87.6 fL (80-100); MEAN CORPUSCULAR HEMOGLOBIN 28.9 pg (25-34); MEAN PLATELET VOLUME 10.1 fL (7.4-10.4); MONO % 12.1 %; NEUT % 46.9 %; PLATELET COUNT 277 K/uL (130-400); RED BLOOD COUNT 4.02 M/uL (4.2-5.4); WHITE BLOOD COUNT 3.81 K/uL (4.8-10.8)
[2016-07-08 07:38] LABS: INR 1.1 (0.9-1.1); PROTHROMBIN TIME (PATIENT) 12.3 SECONDS (9.0-12.0)
[2016-07-08] MEDS: SODIUM CHLOR 0.45% + 20MEQ KCL 1,000 ML IV SCH ×2 (07:53→22:20)
[2016-07-08 07:59] LABS: BUN/CREATININE RATIO 10.9 (10-20); CREATININE 0.73 mg/dl (0.60-1.20); POTASSIUM 4.4 mmol/L (3.5-5.1)
[2016-07-08 08:02] LABS: ALB/GLOB RATIO 0.8 (0.9-2)
--- NOTE | 2016-07-08 08:06 | Medical Consult ---
Consultation Date of Consultation: July 08, 2016. Attending Physician: Terrance Whyte D.O. Reason for Consultation: Abdominal pain. 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 Patient reports that abdominal pain has been present on and off for the past 1 - 1.5 months. Patient was attributing pain to possible peptic ulcer disease due to long-term NSAID use for her diagnosis of ankylosing spondylitis. Patient reports that she had an upper GI and colonoscopy done in May of this year, which were normal- no biopsies taken. Over the past two days her abdominal pain became more consistent and more severe. She was eating a bland diet- mostly mashed potatoes to try and relieve the symptoms. She reports constipation over the past 1 week. Denies fever or chills. She denies nausea or vomiting. Denies bright red blood per rectum. Past Medical/Surgical History Medical Problems: (1) Abdominal pain Status: Acute (2) Cholelithiasis Status: Acute Surgical History [place] teeth Family History No pertinent family history Social History Smoking Status: Never Smoker Smokeless Tobacco Use: No Marital Status: single Housing Status: lives with roommate Occupation Status: [employer] student (about to graduate) Allergies Coded Allergies: Amoxicillin (Unverified Adverse Reaction, Unknown, general malaise, 07/07/16 ) Current Inpatient Medications Current Inpatient Medications Medications (Trade) Dose Ordered Sig/Cayden Route Start Time Stop Time Status Last Admin Dose Admin Ioversol (Optiray 320) 125 ml UD PRN IV 07/07/16 11:00 07/11/16 10:59 Fentanyl Citrate (Fentanyl Inj) 50 mcg Q15M PRN IV 07/07/16 15:00 07/21/16 14:59 07/07/16 15:05 50 MCG Ondansetron HCl (Zofran Inj) 4 mg Q6H PRN IV 07/07/16 16:15 08/06/16 16:14 Miscellaneous Information (Order Awaiting Action) 1 ea QS N/A 07/08/16 00:00 08/07/16 00:00 Morphine Sulfate 4 mg 4 mg Q4H PRN IV 07/07/16 17:00 07/21/16 16:59 Potassium Chloride/Sodium Chloride (1/2 Nss + 20meq KCl 1000ml) 1,000 ml @ 75 mls/hr [id number] IV 07/07/16 19:30 08/06/16 19:29 07/07/16 19:51 75 MLS/HR Review of Systems Constitutional: No chills, No fever, No sweats Abdomen: + pain (improved from yesterday), No diarrhea, No nausea, No vomiting Physical Exam Date Time Temp Pulse Resp B/P Pulse Ox O2 Delivery O2 Flow Rate FiO2 07/08/16 06:54 36.5 58 16 119/73 99 Room Air 07/07/16 23:30 Room Air 07/07/16 23:00 36.6 45 16 103/53 97 Room Air 07/07/16 17:15 36.6 76 14 122/82 98 Room Air 07/07/16 17:15 36.6 76 14 122/82 98 Room Air 07/07/16 16:28 51 18 106/76 100 07/07/16 16:00 106/76 07/07/16 15:38 66 16 99 07/07/16 15:30 125/90 07/07/16 15:08 63 21 97 07/07/16 15:00 125/83 07/07/16 14:38 68 20 94 07/07/16 14:30 127/84 07/07/16 14:08 63 16 99 07/07/16 14:00 136/87 07/07/16 13:38 59 19 97 07/07/16 13:30 62 18 123/99 97 Room Air 07/07/16 13:30 123/99 07/07/16 13:08 67 17 95 07/07/16 13:05 51 07/07/16 13:00 115/75 07/07/16 12:38 72 16 97 07/07/16 12:30 106/62 07/07/16 12:08 48 13 97 07/07/16 12:00 116/68 07/07/16 11:38 54 14 98 07/07/16 11:30 56 18 113/69 99 Room Air 07/07/16 11:30 113/69 07/07/16 10:30 106/63 07/07/16 10:21 51 16 132/92 95 Room Air 07/07/16 10:08 73 14 98 07/07/16 10:00 132/92 07/07/16 09:38 53 18 07/07/16 09:36 52 18 122/83 94 Room Air 07/07/16 09:32 122/83 07/07/16 09:08 72 17 94 07/07/16 09:00 123/93 07/07/16 08:54 55 18 114/87 98 Room Air 07/07/16 08:38 57 20 90 07/07/16 08:30 114/87 07/07/16 08:23 143/87 07/07/16 08:22 51 16 143/87 99 Room Air 07/07/16 08:08 61 13 87 07/07/16 08:00 143/99 07/07/16 07:54 63 General Appearance: WD/WN, no apparent distress Head: normocephalic, atraumatic Respiratory/Chest: chest non-tender, lungs clear, normal breath sounds, no respiratory distress, no accessory muscle use Cardiovascular: regular rate, rhythm, no edema Abdomen/GI: normal bowel sounds, soft, + pertinent finding (mild tenderness in RUQ, non-distended, no guarding) Laboratory Results Last 24 Hours Test 07/07/16 07:50 07/07/16 08:12 07/07/16 09:30 07/08/16 07:14 White Blood Count 4.64 K/uL 3.81 K/uL Red Blood Count 4.16 M/uL 4.02 M/uL Hemoglobin 12.4 g/dL 11.6 g/dL Hematocrit 36.1 % 35.2 % Mean Corpuscular Volume 86.8 fL 87.6 fL Mean Corpuscular Hemoglobin 29.8 pg 28.9 pg Mean Corpuscular Hemoglobin Concent 34.3 g/dl 33.0 g/dl Platelet Count 405 K/uL 277 K/uL Mean Platelet Volume 9.8 fL 10.1 fL Neutrophils (%) (Auto) 54.7 % 46.9 % Lymphocytes (%) (Auto) 26.5 % 33.9 % Monocytes (%) (Auto) 14.7 % 12.1 % Eosinophils (%) (Auto) 2.8 % 5.5 % Basophils (%) (Auto) 1.1 % 1.3 % Neutrophils # (Auto) 2.54 K/uL 1.79 K/uL Lymphocytes # (Auto) 1.23 K/uL 1.29 K/uL Monocytes # (Auto) 0.68 K/uL 0.46 K/uL Eosinophils # (Auto) 0.13 K/uL 0.21 K/uL Basophils # (Auto) 0.05 K/uL 0.05 K/uL RDW Standard Deviation 40.9 fL 42.2 fL RDW Coefficient of Variation 12.7 % 13.0 % Immature Granulocyte % (Auto) 0.2 % 0.3 % Immature Granulocyte # (Auto) 0.01 K/uL 0.01 K/uL Sodium Level 139 mmol/L Potassium Level 3.8 mmol/L Chloride Level 104 mmol/L Carbon Dioxide Level 30 mmol/L Anion Gap 5.0 mmol/L Blood Urea Nitrogen 10 mg/dl Creatinine 0.75 mg/dl Est Creatinine Clear Calc Drug Dose 104.3 ml/min Estimated GFR () 132.1 Estimated GFR (Non- 113.9 BUN/Creatinine Ratio 12.7 Random Glucose 98 mg/dl Calcium Level 9.5 mg/dl Total Bilirubin 0.9 mg/dl Direct Bilirubin 0.5 mg/dl Aspartate Amino Transf (AST/SGOT) 570 U/L Alanine Aminotransferase (ALT/SGPT) 532 U/L Alkaline Phosphatase 253 U/L Total Protein 8.3 gm/dl Albumin 3.5 gm/dl Lipase 359 U/L Monoscreen NEG Bedside Troponin I 0.000 ng/ml Urine Color YELLOW Urine Appearance CLEAR Urine pH 8.0 Urine Specific [place] 1.006 Urine Protein NEG Urine Glucose (UA) NEG Urine Ketones NEG Urine Occult Blood 3+ Urine Nitrite NEG Urine Bilirubin NEG Urine Urobilinogen NEG Urine Leukocyte Esterase NEG Urine WBC (Auto) 1-5 /hpf Urine RBC (Auto) 10-30 /hpf Urine Hyaline Casts (Auto) 1-5 /lpf Urine Epithelial Cells (Auto) 5-10 /lpf Urine Bacteria (Auto) NEG Urine Yeast (Auto) Urine Test NEG Prothrombin Time 12.3 SECONDS Prothromb Time International Ratio 1.1 MRCP CLINICAL HISTORY: Generalized abdominal pain. Nausea and vomiting. Eructation. COMPARISON STUDY: Abdominal CT and abdominal ultrasound dated 07/07/2016. TECHNIQUE: MRCP is performed using various T2-weighted sequences in the axial and coronal planes. IV contrast was not administered for this examination. 3-D reformats are created and assessed. FINDINGS: Layering gallstones are identified within the gallbladder. The gallbladder is otherwise normal in appearance. There is no MRI evidence of cholecystitis. There is no intra or extrahepatic biliary ductal dilatation. The common bile duct is normal in caliber and measures up to 5 mm. Filling defects identified to suggest choledocholithiasis. The pancreatic duct is normal as visualized. The hepatic parenchyma is normal as imaged. Mild periportal edema is suggested. The spleen, kidneys, and pancreas are grossly unremarkable. No upper abdominal ascites is identified. IMPRESSION: 1. Cholelithiasis without MRI evidence of acute cholecystitis. 2. There is no intra or extrahepatic biliary ductal dilatation. There is no evidence of cholelithiasis. 3. Mild hepatic periportal edema is noted and likely related to hydration status. BILIARY ULTRASOUND CLINICAL HISTORY: Upper abdominal pain COMPARISON STUDY: No previous studies for comparison. FINDINGS: The pancreas appears sonographically normal. No focal hepatic masses are visualized. There are multiple gallstones present. In addition there is a small, polyp or adherent stone. The common bile duct is mildly dilated measuring 8 mm. There is no right-sided hydronephrosis. IMPRESSION: 1. Cholelithiasis. No gallbladder wall thickening, and no pericholecystic fluid 2. Mildly dilated 8 [address] common bile duct. CT ABD/PELVIS IV AND ORAL CONT CLINICAL HISTORY: Intermittent epigastric pain. Worse the past 2/9. COMPARISON STUDY: None. TECHNIQUE: Following the IV administration of 94 mL of Optiray-320, CT scan of the abdomen and pelvis was performed from the lung bases to the proximal femurs. Images are reviewed in the axial, sagittal, and coronal planes. IV contrast was administered without complication. CT DOSE: 405.54 mGycm FINDINGS: Lower chest: The heart is normal in size and configuration, without pericardial effusion. The lung bases and pleural spaces are clear. Liver: Slightly heterogeneous enhancement particularly inferiorly. Minimal periportal edema. No focal masses. Gallbladder: Cholelithiasis. Spleen: Normal in size and attenuation. Pancreas: Unremarkable. Adrenal glands: Unremarkable. Kidneys: There is symmetric renal cortical enhancement. The kidneys are normal in size without hydronephrosis. Bowel: There are no transition zones indicate bowel obstruction. There is no acute diverticulitis. There are no findings to indicate acute appendicitis. Peritoneum: There is no intraperitoneal free air or abdominal ascites. Vasculature: The abdominal aorta is normal in course and caliber. Adenopathy: None. Pelvic viscera: The bladder, and pelvic viscera are unremarkable. Skeletal structures: There are subtle sclerosis and erosive changes involving the iliac side of the SI joints.. IMPRESSION: 1. Cholelithiasis 2. No evidence of bowel obstruction. No evidence of free air 3. No evidence of acute diverticulitis. No evidence of acute appendicitis 4. Subtle sclerosis and erosive changes involving the iliac side of the SI joints Assessment & Plan Abdominal Pain, Right Upper Quadrant - In to see patient, patient's mother at bedside- Patient reports that her pain is better controlled today. Reviewed patient's lab work and diagnostic studies. Reviewed patient's MRCP from this AM. Patient NPO, except for medications. Possible Lap Bev with ERCP- will wait for GI to see what their schedule is for today.
[2016-07-08] MEDS ORDERED: NORGESTIMATE PO SCH (09:00)
[2016-07-08] MEDS ORDERED: ETHINYL ESTRAD PO SCH (09:00)
--- NOTE | 2016-07-08 09:48 | Gastroenterology Progress Note ---
Progress Note Date of Service: July 08, 2016 Subjective Pt evaluation today including: conversation w/ patient, conversation w/ family , physical exam, chart review, lab review, review of studies, review of inpatient medication list Pt denies reports improved abd pain, not much nausea and no vomiting. Labs reviewed, LFTs are improving, Tbili normalized. Review of Systems Constitutional: No chills, No fever Respiratory: No cough, No shortness of breath Cardiac: No chest pain, No edema Abdomen: + nausea, No pain, No vomiting Skin: No jaundice Medications Current Inpatient Medications Medications (Trade) Dose Ordered Sig/Cayden Route Start Time Stop Time Status Last Admin Dose Admin Ioversol (Optiray 320) 125 ml UD PRN IV 07/07/16 11:00 07/11/16 10:59 Fentanyl Citrate (Fentanyl Inj) 50 mcg Q15M PRN IV 07/07/16 15:00 07/21/16 14:59 07/07/16 15:05 50 MCG Ondansetron HCl (Zofran Inj) 4 mg Q6H PRN IV 07/07/16 16:15 08/06/16 16:14 Miscellaneous Information (Order Awaiting Action) 1 ea QS N/A 07/08/16 00:00 08/07/16 00:00 Morphine Sulfate 4 mg 4 mg Q4H PRN IV 07/07/16 17:00 07/21/16 16:59 Potassium Chloride/Sodium Chloride (1/2 Nss + 20meq KCl 1000ml) 1,000 ml @ 75 mls/hr [id number] IV 07/07/16 19:30 08/06/16 19:29 07/08/16 07:53 75 MLS/HR Objective Vital Signs Date Time Temp Pulse Resp B/P Pulse Ox O2 Delivery O2 Flow Rate FiO2 07/08/16 08:30 Room Air 07/08/16 06:54 36.5 58 16 119/73 99 Room Air 07/07/16 23:30 Room Air 07/07/16 23:00 36.6 45 16 103/53 97 Room Air 07/07/16 17:15 36.6 76 14 122/82 98 Room Air 07/07/16 17:15 36.6 76 14 122/82 98 Room Air 07/07/16 16:28 51 18 106/76 100 07/07/16 16:00 106/76 5/3/17 15:38 66 16 99 07/07/16 15:30 125/90 07/07/16 15:08 63 21 97 07/07/16 15:00 125/83 07/07/16 14:38 68 20 94 07/07/16 14:30 127/84 07/07/16 14:08 63 16 99 07/07/16 14:00 136/87 07/07/16 13:38 59 19 97 07/07/16 13:30 62 18 123/99 97 Room Air 07/07/16 13:30 123/99 07/07/16 13:08 67 17 95 07/07/16 13:05 51 07/07/16 13:00 115/75 07/07/16 12:38 72 16 97 07/07/16 12:30 106/62 07/07/16 12:08 48 13 97 07/07/16 12:00 116/68 07/07/16 11:38 54 14 98 07/07/16 11:30 56 18 113/69 99 Room Air 07/07/16 11:30 113/69 07/07/16 10:30 106/63 07/07/16 10:21 51 16 132/92 95 Room Air 07/07/16 10:08 73 14 98 07/07/16 10:00 132/92 Physical Exam General Appearance: WD/WN, no apparent distress Eyes: normal inspection, PERRL, EOMI Neck: supple, no JVD, trachea midline Respiratory/Chest: normal breath sounds, no respiratory distress, no accessory muscle use Cardiovascular: regular rate, rhythm, no gallop, no murmur Abdomen: soft, + abnormal bowel sounds (hypoactive), + tenderness (mild discomfort over epigastric per pt on palpation ) Extremities: normal inspection, no pedal edema, no calf tenderness Neurologic/Psych: alert, normal mood/affect, oriented x 3 Skin: normal color, no jaundice, no rash Laboratory Results Last 24 Hours Test 07/08/16 07:14 White Blood Count 3.81 K/uL Red Blood Count 4.02 M/uL Hemoglobin 11.6 g/dL Hematocrit 35.2 % Mean Corpuscular Volume 87.6 fL Mean Corpuscular Hemoglobin 28.9 pg Mean Corpuscular Hemoglobin Concent 33.0 g/dl Platelet Count 277 K/uL Mean Platelet Volume 10.1 fL Neutrophils (%) (Auto) 46.9 % Lymphocytes (%) (Auto) 33.9 % Monocytes (%) (Auto) 12.1 % Eosinophils (%) (Auto) 5.5 % Basophils (%) (Auto) 1.3 % Neutrophils # (Auto) 1.79 K/uL Lymphocytes # (Auto) 1.29 K/uL Monocytes # (Auto) 0.46 K/uL Eosinophils # (Auto) 0.21 K/uL Basophils # (Auto) 0.05 K/uL RDW Standard Deviation 42.2 fL RDW Coefficient of Variation 13.0 % Immature Granulocyte % (Auto) 0.3 % Immature Granulocyte # (Auto) 0.01 K/uL Prothrombin Time 12.3 SECONDS Prothromb Time International Ratio 1.1 Sodium Level 142 mmol/L Potassium Level 4.4 mmol/L Chloride Level 106 mmol/L Carbon Dioxide Level 28 mmol/L Anion Gap 8.0 mmol/L Blood Urea Nitrogen 8 mg/dl Creatinine 0.73 mg/dl Est Creatinine Clear Calc Drug Dose 96.4 ml/min Estimated GFR () 136.5 Estimated GFR (Non- 117.7 BUN/Creatinine Ratio 10.9 Random Glucose 79 mg/dl Calcium Level 9.0 mg/dl Total Bilirubin 0.7 mg/dl Direct Bilirubin 0.2 mg/dl Aspartate Amino Transf (AST/SGOT) 229 U/L Alanine Aminotransferase (ALT/SGPT) 458 U/L Alkaline Phosphatase 214 U/L Total Protein 7.2 gm/dl Albumin 3.1 gm/dl Globulin 4.1 gm/dl Albumin/Globulin Ratio 0.8 Assessment and Plan Patient is a 20 year old female symptoms and elevated transaminases consistent with symptomatic cholelithiasis, possible choledocholithiasis. There is no sign of cholangitis. Abd u/s, CT, MRCP w evidence of cholelithiasis w/o cholecystitis, no choledocholithiasis. Though CBD measured 8mm on u/s, on MRCP it measured 5mm. Pt 's LFTs are trending down, Tbili normalized. She's currently having mild discomfort only on epigastric and slight nausea but overall much improved from her report. - Reviewed MRCP results w Dr. Salvador -> no signs of choledocholithiasis or filling defect. Thus will defer ERCP - Keep NPO; Will ask Surgery to re-eval for possible choledocholithiasis. - Monitor LFTs. I have seen, examined and agree with the plan as outlined by ANTWAN Alas as above. -exam reveals soft abd -LFTs improved -MRCP normal-to OR today for lulu and IOC, but overall improved.
--- NOTE | 2016-07-08 09:52 | Hospitalist Progress Note ---
Hospitalist Progress Note Date of Service July 08, 2016. Subjective Pt evaluation today including: conversation w/ patient, conversation w/ family , physical exam, chart review, lab review, review of studies, review of inpatient medication list Patient's seen and evaluated. No acute events overnight. Reporting abdominal pain is still present however largely improved states pain more radiated into chest. AST and PLT are trending down. GI and general surgery on board with plan for cholecystectomy. She reports first dose of Humira yesterday for ankylosing spondylitis. Verbalizes no other complaints. Positive flatus and had BM morning. Constitutional: No chills, No fatigue, No fever, No weakness ENT: No nasal symptoms, No sore throat, No trouble swallowing Respiratory: No cough, No dyspnea at rest, No dyspnea on exertion Cardiovascular: + chest pain Abdomen: + pain (RUQ - improving), No constipation, No diarrhea, No nausea, No vomiting Musculoskeletal: No calf pain, No swelling Female : No dysuria Neurologic: No balance problems, No numbness/tingling Heme: No abnormal bleeding/bruising Skin: No rash Medications Current Inpatient Medications Medications (Trade) Dose Ordered Sig/Cayden Route Start Time Stop Time Status Last Admin Dose Admin Ioversol (Optiray 320) 125 ml UD PRN IV 07/07/16 11:00 07/11/16 10:59 Fentanyl Citrate (Fentanyl Inj) 50 mcg Q15M PRN IV 07/07/16 15:00 07/21/16 14:59 07/07/16 15:05 50 MCG Ondansetron HCl (Zofran Inj) 4 mg Q6H PRN IV 07/07/16 16:15 08/06/16 16:14 Miscellaneous Information (Order Awaiting Action) 1 ea QS N/A 07/08/16 00:00 08/07/16 00:00 Morphine Sulfate 4 mg 4 mg Q4H PRN IV 07/07/16 17:00 07/21/16 16:59 Potassium Chloride/Sodium Chloride (1/2 Nss + 20meq KCl 1000ml) 1,000 ml @ 75 mls/hr [id number] IV 07/07/16 19:30 08/06/16 19:29 07/08/16 07:53 75 MLS/HR Objective Vital Signs Date Time Temp Pulse Resp B/P Pulse Ox O2 Delivery O2 Flow Rate FiO2 07/08/16 08:30 Room Air 07/08/16 06:54 36.5 58 16 119/73 99 Room Air 07/07/16 23:30 Room Air 07/07/16 23:00 36.6 45 16 103/53 97 Room Air 07/07/16 17:15 36.6 76 14 122/82 98 Room Air 07/07/16 17:15 36.6 76 14 122/82 98 Room Air 07/07/16 16:28 51 18 106/76 100 07/07/16 16:00 106/76 07/07/16 15:38 66 16 99 07/07/16 15:30 125/90 07/07/16 15:08 63 21 97 07/07/16 15:00 125/83 07/07/16 14:38 68 20 94 07/07/16 14:30 127/84 07/07/16 14:08 63 16 99 07/07/16 14:00 136/87 07/07/16 13:38 59 19 97 07/07/16 13:30 62 18 123/99 97 Room Air 07/07/16 13:30 123/99 07/07/16 13:08 67 17 95 07/07/16 13:05 51 07/07/16 13:00 115/75 07/07/16 12:38 72 16 97 07/07/16 12:30 106/62 07/07/16 12:08 48 13 97 07/07/16 12:00 116/68 07/07/16 11:38 54 14 98 07/07/16 11:30 56 18 113/69 99 Room Air 07/07/16 11:30 113/69 07/07/16 10:30 106/63 07/07/16 10:21 51 16 132/92 95 Room Air 07/07/16 10:08 73 14 98 07/07/16 10:00 132/92 Physical Exam General Appearance: WD/WN, no apparent distress Eyes: sclerae normal ENT: hearing grossly normal Neck: supple, no JVD, trachea midline Respiratory/Chest: lungs clear, normal breath sounds, no respiratory distress, no accessory muscle use Cardiovascular: regular rate, rhythm, no gallop, no murmur Abdomen: normal bowel sounds, soft, + tenderness (mild in RUQ and epigastric region; no guarding or rigidity suggesting acute abdomen) Extremities: no pedal edema, no calf tenderness Neurologic/Psychiatric: alert, oriented x 3 Skin: normal color, warm/dry Laboratory Results Last 24 Hours Test 07/08/16 07:14 White Blood Count 3.81 K/uL Red Blood Count 4.02 M/uL Hemoglobin 11.6 g/dL Hematocrit 35.2 % Mean Corpuscular Volume 87.6 fL Mean Corpuscular Hemoglobin 28.9 pg Mean Corpuscular Hemoglobin Concent 33.0 g/dl Platelet Count 277 K/uL Mean Platelet Volume 10.1 fL Neutrophils (%) (Auto) 46.9 % Lymphocytes (%) (Auto) 33.9 % Monocytes (%) (Auto) 12.1 % Eosinophils (%) (Auto) 5.5 % Basophils (%) (Auto) 1.3 % Neutrophils # (Auto) 1.79 K/uL Lymphocytes # (Auto) 1.29 K/uL Monocytes # (Auto) 0.46 K/uL Eosinophils # (Auto) 0.21 K/uL Basophils # (Auto) 0.05 K/uL RDW Standard Deviation 42.2 fL RDW Coefficient of Variation 13.0 % Immature Granulocyte % (Auto) 0.3 % Immature Granulocyte # (Auto) 0.01 K/uL Prothrombin Time 12.3 SECONDS Prothromb Time International Ratio 1.1 Sodium Level 142 mmol/L Potassium Level 4.4 mmol/L Chloride Level 106 mmol/L Carbon Dioxide Level 28 mmol/L Anion Gap 8.0 mmol/L Blood Urea Nitrogen 8 mg/dl Creatinine 0.73 mg/dl Est Creatinine Clear Calc Drug Dose 96.4 ml/min Estimated GFR () 136.5 Estimated GFR (Non- 117.7 BUN/Creatinine Ratio 10.9 Random Glucose 79 mg/dl Calcium Level 9.0 mg/dl Total Bilirubin 0.7 mg/dl Direct Bilirubin 0.2 mg/dl Aspartate Amino Transf (AST/SGOT) 229 U/L Alanine Aminotransferase (ALT/SGPT) 458 U/L Alkaline Phosphatase 214 U/L Total Protein 7.2 gm/dl Albumin 3.1 gm/dl Globulin 4.1 gm/dl Albumin/Globulin Ratio 0.8 Assessment and Plan Ms. Barrios is a 20 y/o female with PMHx of Ankylosing Spondylitis who presents with worsening CP and RUQ tenderness with evidence of CBD dilation and gallstones without evidence of cholecystitis. 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
[2016-07-08] MEDS ORDERED: BUPIVACAINE/EPINEPHRINE 0.5% MPF 1:200,000 30 ML VIAL ONE (14:52)
[2016-07-08] MEDS ORDERED: NURSING VERBAL MED ORDER STA (15:10)
[2016-07-08] MEDS ORDERED: FENTANYL CITRATE INJ 50 MCG/1 ML 2 ML VIAL ONE ×3 (15:12→16:18)
[2016-07-08] MEDS ORDERED: MIDAZOLAM HCL 1 MG/ML 2ML VIAL ONE (15:12)
[2016-07-08] MEDS ORDERED: HYDR-5688 PO (15:12)
[2016-07-08] MEDS ORDERED: CIPROFLOXACIN 400MG / 200ML D5W ONE (15:14)
--- NOTE | 2016-07-08 15:14 | History & Physical Bridge Note ---
H&P Re-Evaluation Bridge Note: I have examined the patient, reviewed the History & Physical and in the interval since the performance of the History & Physical I have noted the following changes of clinical significance: No changes noted
--- NOTE | 2016-07-08 15:14 | Discharge Instructions ---
Discharge Instructions Date of Service July 08, 2016. Admission Reason for Admission: Abdominal Pain, Cholelithiasis Discharge Discharge Diagnosis / Problem: Abdominal Pain, Cholelithiasis Discharge Goals Goal(s): Decrease discomfort, Improve function Activity Recommendations Activity Limitations: as noted below Lifting Limitations: no more than 10 pounds Exercise/Sports Limitations: until after follow-up appointment May Resume Sexual Activity: after follow-up appointment Shower/Bathe: tomorrow . Instructions / Follow-Up Instructions / Follow-Up Please follow-up with Dr. Alston in the office in 1-2 weeks. Please call the office at [phone] to make an appointment. Please call the office at [phone] with any questions or concerns. Current Hospital Diet Patient's current hospital diet: Discharge Diet Recommended Diet: Regular Diet Pending Studies Studies pending at discharge: no Medical Emergencies . Who to Call and When: Medical Emergencies: If at any time you feel your situation is an emergency, please call 911 immediately. . Non-Emergent Contact Non-Emergency issues call your: Primary Care Provider, Surgeon Call Non-Emergent contact if: temperature is above 101.5, your pain is not controlled, wound has increased drainage, wound has increased redness . "Provider Documentation" section prepared by Marjorie Kaufman. . VTE Core Measure Inpt VTE Proph given/why not?: SCD's [place] Drug Monitoring Program Search Results: patient reviewed within database, no issues identified
[2016-07-08] MEDS ORDERED: CONRAY 60% 50 ML VIAL ONE (15:16)
[2016-07-08] MEDS ORDERED: ONDANSETRON INJ 2 MG/ML 2 ML VIAL IV PRN (16:15)
[2016-07-08] MEDS ORDERED: KETOROLAC TROMETHAMINE 30 MG/ML VIAL IV. PRN (16:15)
[2016-07-08] MEDS ORDERED: HYDROmorphone INJ 1 MG/ML SYR IV PRN (16:15)
[2016-07-08] MEDS ORDERED: ATROPINE SULFATE 0.1 MG/ML 5ML SYR IV PRN (16:15)
[2016-07-08] MEDS ORDERED: PROMETHAZINE HCL INJ 12.5 MG in SODIUM CHLORIDE 0.9% 50ML 50 ML IV PRN (16:15)
[2016-07-08] MEDS ORDERED: NALOXONE HCL 0.4 MG/1 ML VIAL/CARP IV PRN (16:15)
[2016-07-08] MEDS ORDERED: EpHEDrine SULFATE INJ 50 MG/ML AMP IV PRN (16:15)
[2016-07-08] MEDS ORDERED: FLUMAZENIL 0.1 MG/1 ML 10 ML VIAL IV PRN (16:15)
[2016-07-08] MEDS ORDERED: HYDROmorphone INJ 2 MG/ML SYR/VIAL ONE (16:29)
[2016-07-08] MEDS ORDERED: MoRPHine SULFATE 4 MG/ML 1 ML CARP\\VIAL IV PRN (16:30)
[2016-07-08] MEDS ORDERED: NEOSTIGMINE METHYLSULFATE 5 MG/5 ML SYR ONE (16:32)
[2016-07-08] MEDS ORDERED: KETOROLAC TROMETHAMINE 30 MG/ML VIAL ONE (16:32)
[2016-07-08] MEDS ORDERED: RANITIDINE HCL 25 MG/ML INJ ONE (16:32)
[2016-07-08] MEDS ORDERED: DEXAMETHASONE SOD INJ 4 MG/ML VIAL ONE (16:32)
[2016-07-08] MEDS ORDERED: PROPOFOL IV EMULSION 10 MG/ML 20 ML VIAL IV ONE (16:32)
[2016-07-08] MEDS ORDERED: GLYCOPYRROLATE INJ 0.2 MG/ML VIAL ONE (16:32)
[2016-07-08] MEDS ORDERED: ROCURONIUM BROMID 50MG/5ML SYR ONE (16:32)
[2016-07-08] MEDS ORDERED: ONDANSETRON INJ 2 MG/ML 2 ML VIAL ONE (16:32)
[2016-07-08] MEDS ORDERED: LIDOCAINE HCL 2% 2 ML VIAL (20MG/ML) ONE (16:32)
--- NOTE | 2016-07-08 16:34 | DIAGNOSTIC IMAGING REPORT ---
INTRAOPERATIVE CHOLANGIOGRAM HISTORY: Post cholecystectomy. FLUOROSCOPY TIME: 28 seconds. FINDINGS: Fluoroscopy was provided for an intraoperative cholangiogram status post cholecystectomy. Contrast was injected through the cystic duct remnant. The common bile duct is normal in course and caliber. There are no filling defects seen within the common bile duct to suggest a retained stone. Contrast extends into the small bowel. There is no intrahepatic bile duct dilatation. IMPRESSION: Fluoroscopy provided for an intraoperative cholangiogram status post cholecystectomy. No filling defects within the common bile duct. No evidence for obstruction. Electronically signed by: Ye Spain M.D. 07/08/2016 4:32 PM Dictated Date/Time: 07/08/2016 4:32 PM
--- NOTE | 2016-07-08 16:44 | [facility] Operative Report ---
Operative Report Operative Date July 08, 2016. Pre-Operative Diagnosis Cholelithasis Post-Operative Diagnosis same Procedure(s) Performed lap lulu with intra-operative cholangiogram Surgeon Dr Alston Disaster Recovery Manager Surgeon(s) Marjorie Kaufman PA-C Estimated Blood Loss 10ml Findings essentially normal anatomy; negative cholangiogram. mild gallbladder wall edema Specimens a. Gallbladder Anesthesia get Complication(s) None Disposition Recovery Room / PACU I attest to the content of the Intraoperative Record and any orders documented therein. Any exceptions are noted below.
--- NOTE | 2016-07-08 17:12 | OPERATIVE REPORT ---
DATE OF OPERATION: 07/08/2016 PREOPERATIVE DIAGNOSES: Cholelithiasis and choledocholithiasis. POSTOPERATIVE DIAGNOSES: Cholelithiasis, no evidence of current choledocholithiasis as well as chronic cholecystitis. PROCEDURE: Laparoscopic cholecystectomy with intraoperative cholangiogram. SURGEON: Dr. Alexandr Alston. NEUROPSYCHIATRIC AIDE: Marjorie Kaufman PA-C ESTIMATED BLOOD LOSS: Approximately 10 mL. COMPLICATIONS: No immediate. ANESTHESIA: General. The patient tolerated the procedure well. OPERATIVE NOTE: After informed consent was obtained, the patient was taken to the operating suite and placed in the supine position. After successful intubation, the abdomen was sterilely prepped and draped in the usual fashion. A periumbilical incision was made with an 11-blade scalpel and carried down through the soft tissue using electrocautery. Anterior rectus fascia was opened using electrocautery and two #0 Vicryl stay sutures were placed. Peritoneum was elevated with hemostats and incised under direct vision using a Metzenbaum scissor. A finger sweep was performed. A 12-mm Ubaldo trocar was placed and the abdomen was insufflated at 18 mmHg. Laparoscope was inserted and the abdomen examined at 360 degrees. A subxiphoid 5-mm port and 2 right upper quadrant 5-mm ports were placed under direct vision. The patient was placed in reverse Trendelenburg position, slightly airplaned to the left. The gallbladder was grasped and elevated superiorly and laterally. A [place] dissector was used to take down some adhesions around the neck of the gallbladder. There was an anterior aberrant cystic artery that was skeletonized, clipped and divided. After that, we were able to then skeletonize the cystic duct. A clip was placed distally and than 50% of the circumference of the duct was transected. We then inserted a catheter introduction kit tip into the right upper quadrant. A cholangiocath was advanced into the lumen of the cystic duct and the balloon inflated. We performed an intraoperative cholangiogram with 50:50 omnipaque. The common bile duct appeared to be free of any filling defect, filled rapidly as did the right and left hepatic ducts and it filled the whole way down into the duodenum. We did not get good visualization of the cystic duct because the balloon had advanced down into the common duct; however, primarily we were looking for common bile duct stones and we did not see any evidence of that. We then deflated the balloon and removed it. I clipped the cystic duct twice proximally and transected it. There was a cystic artery posteriorly as well, we skeletonized, clipped and divided. We then removed the gallbladder from the gallbladder fossa. It was removed intact and placed into an EndoCatch bag. Several small bleeding points in the gallbladder fossa were controlled using electrocautery. Thorough irrigation was performed of the right upper quadrant. At the end of the procedure, there was adequate hemostasis and no evidence of any bile leak. We did take a quick look around the abdomen and on the left lobe of the liver and saw no other gross abnormalities. The gallbladder was placed into an EndoCatch bag and removed from the camera port site. The trocars were all removed and the abdomen desufflated. The fascia of the camera port was closed using 0 Vicryl in a [id number] fashion. All the wounds were irrigated and closed using 4-0 Monocryl. Marcaine was injected around them for postoperative analgesia and skin glue used as a dressing. The patient was awakened, extubated, and transferred to recovery in stable condition. I attest to the content of the Intraoperative Record and any orders documented therein. Any exceptio ns are noted below.
--- NOTE | 2016-07-08 17:22 | Anesthesiology Progress Note ---
Anesthesia Post Op Note Date & Time July 08, 2016 at 17:22 Vital Signs Pain Intensity: 0 Vital Signs Past 12 Hours Date Time Temp Pulse Resp B/P Pulse Ox O2 Delivery O2 Flow Rate FiO2 07/08/16 17:15 57 12 124/73 100 Mask 10 07/08/16 17:05 72 15 119/68 100 Mask 10 07/08/16 16:55 36.9 90 14 135/63 99 Mask 10 07/08/16 08:30 Room Air 07/08/16 06:54 36.5 58 16 119/73 99 Room Air Notes Mental Status: alert / awake / arousable, participated in evaluation Pt Amnestic to Procedure: Yes Nausea / Vomiting: adequately controlled Pain: adequately controlled Airway Patency, RR, SpO2: stable & adequate BP & HR: stable & adequate Hydration State: stable & adequate Anesthetic Complications: no major complications apparent
[2016-07-08 18:13] VITALS: O2SAT 100
[2016-07-08 18:20] VITALS: O2SAT 100
[2016-07-08 19:02] VITALS: BP 132/87; PULSE 63; TEMP 36.5; O2SAT 97
[2016-07-08 20:20] VITALS: BP 138/87; PULSE 56; TEMP 36.3; O2SAT 96
[2016-07-08 21:02] VITALS: BP 136/92; PULSE 52; TEMP 36.4; O2SAT 98
[2016-07-08] MEDS: HYDROCODONE/ACETAMOPHEN 5/325MG TAB PO PRN (22:21)
[2016-07-09] VITALS: BP 117/77; PULSE 53; TEMP 36.5; O2SAT 98
[2016-07-09 03:29] VITALS: BP 116/73; PULSE 47; TEMP 36.5; O2SAT 98
[2016-07-09 03:55] VITALS: PULSE 52
[2016-07-09] MEDS: HYDROCODONE/ACETAMOPHEN 5/325MG TAB PO PRN ×3 (04:04→14:25)
[2016-07-09 07:13] LABS: HEMATOCRIT 34.5 % (37-47); MEAN CELL VOLUME 86.7 fL (80-100); MEAN CORPUSCULAR HEMOGLOBIN 28.6 pg (25-34); PLATELET COUNT 354 K/uL (130-400); RED BLOOD COUNT 3.98 M/uL (4.2-5.4); WHITE BLOOD COUNT 9.02 K/uL (4.8-10.8)
[2016-07-09 07:18] VITALS: BP 120/75; PULSE 56; TEMP 36.6; O2SAT 98
[2016-07-09 07:44] LABS: ALT/SGPT 312 U/L (12-78); AST/SGOT 91 U/L (15-37); BLOOD UREA NITROGEN 6 mg/dl (7-18); BUN/CREATININE RATIO 10.3 (10-20); CALCIUM 8.8 mg/dl (8.5-10.1); CARBON DIOXIDE 27 mmol/L (21-32); CHLORIDE 104 mmol/L (98-107); CREATININE 0.56 mg/dl (0.60-1.20); GLUCOSE 95 mg/dl (70-99); POTASSIUM 4.1 mmol/L (3.5-5.1); SODIUM 139 mmol/L (136-145)
[2016-07-09 07:46] LABS: ALB/GLOB RATIO 0.8 (0.9-2); ALKALINE PHOSPHATASE 175 U/L (45-117)
--- NOTE | 2016-07-09 08:53 | Discharge Instructions ---
Discharge Instructions Date of Service July 09, 2016. Admission Reason for Admission: Abdominal Pain, Cholelithiasis Discharge Discharge Diagnosis / Problem: Cholelithiasis with Laparoscopic Cholecystectomy Discharge Goals Goal(s): Decrease discomfort, Improve function, Increase independence Activity Recommendations Activity Limitations: as noted below (Please see discharge instructions from general surgery) . Instructions / Follow-Up Instructions / Follow-Up Choledocholithiasis (Stone in Common Bile Duct): - Question of possible stone from gallbladder may have moved and passed resulting in your pain. Imaging and surgery was unable to visualize current stone in common bile duct or obstruction - Follow instructions as given by general surgery - Would recommend advancing diet as tolerated. Be careful with fatty foods as these may cause diarrhea. - The purpose of the gallbladder is to hold bile (this helps break down fats) and slowly releases bile into the intestine to digest fat. When you do not have a gallbladder the liver will dump the bile directly into the intestines that can cause diarrhea. Ankylosing Spondylitis: - Would recommend touching base with your chief of staff doctor prior to your appointment to see if they would recommend holding the dose. - Overall as long as you are feeling well there should not be any contraindications but please discuss with your [facility] Home Medications: - Continue your home medications as previously prescribed Current Hospital Diet Patient's current hospital diet: Clear Liquid Diet Discharge Diet Recommended Diet: Regular Diet Procedures Procedures Performed: Laparoscopic Cholecystectomy with Cholangiogram Pending Studies Studies pending at discharge: yes List of pending studies: Gallbladder pathology Medical Emergencies . Who to Call and When: Medical Emergencies: If at any time you feel your situation is an emergency, please call 911 immediately. . Non-Emergent Contact Non-Emergency issues call your: Primary Care Provider Call Non-Emergent contact if: you have a fever, your pain is concerning you, you have any medication questions . . "Provider Documentation" section prepared by Winnie Anaya. . VTE Core Measure Inpt VTE Proph given/why not?: SCD's
--- NOTE | 2016-07-09 08:57 | Surgery Progress Note ---
Surgery Progress Note Date of Service July 09, 2016. Subjective Post OP Day: 1 + feeling well, + flatus In to see patient with Dr. Alston- Patient doing ok- reports abdominal discomfort. Denies nausea or vomiting. Objective Vital Signs: Date Time Temp Pulse Resp B/P Pulse Ox O2 Delivery O2 Flow Rate FiO2 07/09/16 07:20 Room Air 07/09/16 07:18 36.6 56 16 120/75 98 Room Air 07/09/16 03:55 52 07/09/16 03:29 36.5 47 16 116/73 98 Room Air 07/09/16 00:20 Room Air 07/09/16 00:00 36.5 53 16 117/77 98 Room Air 07/08/16 21:02 36.4 52 16 136/92 98 Room Air 07/08/16 20:20 36.3 56 16 138/87 96 07/08/16 19:02 36.5 63 16 132/87 97 Nasal Cannula 2.0 07/08/16 18:20 100 Nasal Cannula 2.0 07/08/16 18:13 100 Nasal Cannula 2.0 07/08/16 17:35 60 13 133/74 100 Nasal Cannula 2 07/08/16 17:25 37.4 54 13 135/77 100 Nasal Cannula 2 07/08/16 17:15 57 12 124/73 100 Mask 10 07/08/16 17:05 72 15 119/68 100 Mask 10 07/08/16 16:55 36.9 90 14 135/63 99 Mask 10 General Appearance: WD/WN, + mild distress Head: normocephalic, atraumatic Respiratory/Chest: no respiratory distress Abdomen: non distended, soft Incision(s): clean, dry, intact, no drainage Laboratory Results: Results Past 24 Hours Test 07/09/16 06:35 Range/Units White Blood Count 9.02 4.8-10.8 K/uL Red Blood Count 3.98 4.2-5.4 M/uL Hemoglobin 11.4 12.0-16.0 g/dL Hematocrit 34.5 37-47 % Mean Corpuscular Volume 86.7 80-100 fL Mean Corpuscular Hemoglobin 28.6 25-34 pg Mean Corpuscular Hemoglobin Concent 33.0 32-36 g/dl RDW Standard Deviation 41.4 36.4-46.3 fL RDW Coefficient of Variation 12.9 11.5-14.5 % Platelet Count 354 130-400 K/uL Mean Platelet Volume 10.0 7.4-10.4 fL Sodium Level 139 136-145 mmol/L Potassium Level 4.1 3.5-5.1 mmol/L Chloride Level 104 98-107 mmol/L Carbon Dioxide Level 27 21-32 mmol/L Anion Gap 8.0 3-11 mmol/L Blood Urea Nitrogen 6 7-18 mg/dl Creatinine 0.56 0.60-1.20 mg/dl Est Creatinine Clear Calc Drug Dose 125.7 ml/min Estimated GFR () > 150.0 Estimated GFR (Non- 133.3 BUN/Creatinine Ratio 10.3 10-20 Random Glucose 95 70-99 mg/dl Calcium Level 8.8 8.5-10.1 mg/dl Total Bilirubin 0.7 0.2-1 mg/dl Aspartate Amino Transf (AST/SGOT) 91 15-37 U/L Alanine Aminotransferase (ALT/SGPT) 312 12-78 U/L Alkaline Phosphatase 175 45-117 U/L Total Protein 6.5 6.4-8.2 gm/dl Albumin 2.8 3.4-5.0 gm/dl Globulin 3.7 2.5-4.0 gm/dl Albumin/Globulin Ratio 0.8 0.9-2 Assessment & Plan POD #1 s/p Lap lulu with intraoperative cholangiogram- Dr. Alston in to see patient. Patient sitting up in bed and doing well- having minor abdominal pain, which is not unexpected on POD #1. Patient ok to be discharged today. Patient ok to go on trip to [place] on 07/19- reminded her to be careful with lifting and make sure to rest when able. Advance diet as tolerated. Patient to follow-up with family physician at home.
--- NOTE | 2016-07-09 08:57 | Anesthesiology Progress Note ---
Anesthesia Post Op Note Date & Time July 09, 2016 at 08:57 Vital Signs Vital Signs Past 12 Hours Date Time Temp Pulse Resp B/P Pulse Ox O2 Delivery O2 Flow Rate FiO2 07/09/16 07:20 Room Air 07/09/16 07:18 36.6 56 16 120/75 98 Room Air 07/09/16 03:55 52 07/09/16 03:29 36.5 47 16 116/73 98 Room Air 07/09/16 00:20 Room Air 07/09/16 00:00 36.5 53 16 117/77 98 Room Air 07/08/16 21:02 36.4 52 16 136/92 98 Room Air Notes Mental Status: alert / awake / arousable, participated in evaluation Pt Amnestic to Procedure: Yes Nausea / Vomiting: adequately controlled Pain: adequately controlled Airway Patency, RR, SpO2: stable & adequate BP & HR: stable & adequate Hydration State: stable & adequate Anesthetic Complications: no major complications apparent
[2016-07-09] MEDS: SODIUM CHLOR 0.45% + 20MEQ KCL 1,000 ML IV SCH (11:09)
[2016-07-09 11:43] VITALS: BP 120/75; PULSE 56; TEMP 36.6; O2SAT 98
--- NOTE | 2016-07-09 13:39 | Discharge Summary ---
Discharge Summary Date of Service July 09, 2016. Discharge Summary Admission Date: July 07, 2016 at 15:02 Discharge Date: July 09, 2016 Discharge Disposition: Home Principal Diagnosis: Cholelithiasis S/P Cholecystectomy Problems/Secondary Diagnoses: 1. Ankylosing Spondylitis Procedures: 1. CHEST ONE VIEW PORTABLE FINDINGS: The cardiac and mediastinal contours are normal. There is no evidence of focal pulmonary consolidation. There is no evidence of failure. No pleural effusions are visualized.[ No free intraperitoneal air is visualized. IMPRESSION: No active disease in the chest. 2. CT ABD/PELVIS IV AND ORAL CONT FINDINGS: Lower chest: The heart is normal in size and configuration, without pericardial effusion. The lung bases and pleural spaces are clear. Liver: Slightly heterogeneous enhancement particularly inferiorly. Minimal periportal edema. No focal masses. Gallbladder: Cholelithiasis. Spleen: Normal in size and attenuation. Pancreas: Unremarkable. Adrenal glands: Unremarkable. Kidneys: There is symmetric renal cortical enhancement. The kidneys are normal in size without hydronephrosis. Bowel: There are no transition zones indicate bowel obstruction. There is no acute diverticulitis. There are no findings to indicate acute appendicitis. Peritoneum: There is no intraperitoneal free air or abdominal ascites. Vasculature: The abdominal aorta is normal in course and caliber. Adenopathy: None. Pelvic viscera: The bladder, and pelvic viscera are unremarkable. Skeletal structures: There are subtle sclerosis and erosive changes involving the iliac side of the SI joints.. IMPRESSION: 1. Cholelithiasis 2. No evidence of bowel obstruction. No evidence of free air 3. No evidence of acute diverticulitis. No evidence of acute appendicitis 4. Subtle sclerosis and erosive changes involving the iliac side of the SI joints 3. BILIARY ULTRASOUND FINDINGS: The pancreas appears sonographically normal. No focal hepatic masses are visualized. There are multiple gallstones present. In addition there is a small, polyp or adherent stone. The common bile duct is mildly dilated measuring 8 mm. There is no right-sided hydronephrosis. IMPRESSION: 1. Cholelithiasis. No gallbladder wall thickening, and no pericholecystic fluid 2. Mildly dilated 8 mm common bile duct. 4. MRCP FINDINGS: Layering gallstones are identified within the gallbladder. The gallbladder is otherwise normal in appearance. There is no MRI evidence of cholecystitis. There is no intra or extrahepatic biliary ductal dilatation. The common bile duct is normal in caliber and measures up to 5 mm. There are no filling defects identified to suggest choledocholithiasis. The pancreatic duct is normal as visualized. The hepatic parenchyma is normal as imaged. Mild periportal edema is suggested. The spleen, kidneys, and pancreas are grossly unremarkable. No upper abdominal ascites is identified. IMPRESSION: 1. Cholelithiasis without MRI evidence of acute cholecystitis. 2. There is no intra or extrahepatic biliary ductal dilatation. There is no evidence of choledocholithiasis. 3. Mild hepatic periportal edema is noted and likely related to hydration status. 5. INTRAOPERATIVE CHOLANGIOGRAM FINDINGS: Fluoroscopy was provided for an intraoperative cholangiogram status post cholecystectomy. Contrast was injected through the cystic duct remnant. The common bile duct is normal in course and caliber. There are no filling defects seen within the common bile duct to suggest a retained stone. Contrast extends into the small bowel. There is no intrahepatic bile duct dilatation. IMPRESSION: Fluoroscopy provided for an intraoperative cholangiogram status post cholecystectomy. No filling defects within the common bile duct. No evidence for obstruction. Consultations: 1. GI 2. General Surgery Medication Reconciliation New Medications: Hydrocodone/Acetaminophen 5MG/325MG (Hammond 5MG/325MG) Tab 1-2 TABLETS PO Q4 PRN for Pain for 3 Days, #30 TAB Continued Medications: Adalimumab (Humira) 40 Mg/0.8 Ml Kit 40 MG SQ EVERY OTHER WEEK Aluminum Hydroxide-Mag Carb (Gaviscon Extra Strength 254-237.5 mg/5Ml) 1 Eleni Eleni 10 ML PO Ethinyl Estrad/Norgestimate (Sprintec 28) 1 Tab Tab 1 TAB PO DAILY for 28 Days, #28 TAB 11 Refills Loratadine (Claritin) 10 Mg Tab 10 MG PO DAILY, TAB Pantoprazole (Protonix) 40 Mg Tab 40 MG PO DAILY, #30 TAB Discharge Exam Review of Systems: Constitutional: No chills, No fever Eyes: No diplopia, No worsening of vision ENT: No nasal symptoms, No sore throat, No trouble swallowing Respiratory: No cough, No shortness of breath Cardiovascular: No chest pain Abdomen: + pain (incisional pain), No GI bleeding, No constipation, No diarrhea, No nausea, No vomiting Musculoskeletal: No calf pain, No joint pain, No muscle pain, No swelling Genitourinary - Female: + hematuria (menses), No dysuria, No urinary frequency Neurologic: No balance problems, No numbness/tingling Hematologic / Lymphatic: No abnormal bleeding/bruising Integumentary: No rash Physical Exam: General Appearance: WD/WN, no apparent distress Eyes: sclerae normal ENT: hearing grossly normal Neck: supple Respiratory/Chest: lungs clear, normal breath sounds, no respiratory distress, no accessory muscle use Cardiovascular: regular rate, rhythm, no gallop, no murmur Abdomen / GI: normal bowel sounds, soft, + pertinent finding (3 surgical incisions that are well approximated without edema, erythema, or discharge at current time) Extremities: no pedal edema Neurologic/Psychiatric: alert, oriented x 3 Skin: normal color, warm/dry Hospital Course ADMISSION: The patient is a very pleasant 20-year-old female accompanied by her aunt who is a family physician known to me outside of work who notes that she started with chest and epigastric pain it has really been going off and on for about 4-6 weeks but really worse, especially over the last 2 days or so. She kind of wondered if she was having peptic ulcer disease problems because the custodial NSAIDs related to her ankylosing spondylitis, but whenever she came here to the ER, her workup appeared much more biliary. She has not had fevers, chills, or sweats. She has not had jaundice. She has already been seen by GI by the time I have seen her and I discussed the case with general surgery. HOSPITAL COURSE: Ms. Barrios was admitted for cholelithiasis with possible choledocholithiasis that resolved and is S/P laparoscopic cholecystectomy on 07/08. Suspect a resolved choledocholithiasis as initial evidence of CBD dilation on U/S that resolved on MRCP imaging with cholangiogram confirming no obstruction after cholecystectomy. She is tolerating an advanced diet and pain is managed with current regimen. Transaminitis is resolving. She was discharged home with Percocet PRN. She is a college student expected to graduate and return home approx. 2 hours away. She will follow-up with PCP in hometown and is expected to travel to [place] in the next week. She was instructed to discuss with her business analysis specialist about her next scheduled Humira for her ankylosing spondylitis as it does not appear to have any contraindications for therapy at this time. She is optimal for discharge home at this time. Total Time Spent: Greater than 30 minutes This includes examination of the patient, discharge planning, medication reconciliation, and communication with other providers. Discharge Instructions Please refer to the electronic Patient Visit Report (Discharge Instructions) for additional information. Additional Copies To [facility]
== END 2016-07-09 15:15 | disposition home or self-care (01) | DRG 419 ==
LOC: ENRESERVTM → ENRESERVDT → C.EDB 07:39 → C.MSN 15:02 → C.EDA 16:29
PROVIDERS: ADMIT Family Medicine; ATTEND Internal Medicine
PROC: BF101ZZ Fluoroscopy of Bile Ducts using Low Osmolar Contrast (ICD-10-PCS; principal; 2016-07-08 14:30)
PROC: 0FT44ZZ Resection of Gallbladder, Percutaneous Endoscopic Approach (ICD-10-PCS; principal; 2016-07-08 14:30)
DX: K80.10 Calculus of gallbladder with chronic cholecystitis without obstruction (principal); K82.8 Other specified diseases of gallbladder; R74.0 Nonspecific elevation of levels of transaminase and lactic acid dehydrogenase [LDH]; K59.00 Constipation, unspecified; M45.9 Ankylosing spondylitis of unspecified sites in spine; Z79.3 Long term (current) use of hormonal contraceptives; Z79.899 Other long term (current) drug therapy